=== PATIENT | male | born 1990 | race Two or more races ===

== ENCOUNTER 2019-08-29 22:42 | Emergency (ER) | payer MEDICAID ==
[~2019-08-29] VITALS: Ht 177.8 cm; Wt 79.4 kg
--- NOTE | 2019-08-29 23:37 | NUR ---
PT PRESENTED TO THE ER WITH A C/O A WEIGHT LIFTING BAR FELL ON HIS HEAD 90 MINS [employer]. PT SEEMS A LITTLE SLEEPY. PT AMBULATED TO ER BED #2. PT WAS PLACED ON THE MONITOR AND CONTINUOUS PULSE OX.
--- NOTE | 2019-08-29 23:50 | NUR ---
WOUND CARE IN PROGRESS.
[2019-08-30] MEDS ORDERED: ACETAMINOPHEN 325 MG TABLET PO ONE
--- NOTE | 2019-08-30 | NUR ---
PT REC'D 2 WALLY ON TOP OF HEAD. LAC APPROX 2 CM.
--- NOTE | 2019-08-30 00:02 | NUR ---
PT REC'D A TETANUS SHOT. PT DID NOT WANT TYLENOL.
[2019-08-30] MEDS ORDERED: TDAP [DIPH/PERTUSSIS/TET] 0.5 ML VIAL IM ONE ×2 (00:10)
--- NOTE | 2019-08-30 00:15 | NUR ---
Patient discharged to home in stable condition. Written and verbal after care instructions given. Patient verbalizes understanding of instruction. PT AMBULATED OUT WITH A STEADY GAIT. VSS.
[2019-08-30 00:29] VITALS: BP 116/79
== END 2019-08-30 00:15 | disposition home or self-care (01) ==
LOC: ER 22:42
DX: S01.01XA Laceration without foreign body of scalp, initial encounter (principal); S09.8XXA Other specified injuries of head, initial encounter; Z23 Encounter for immunization; W17.89XA Other fall from one level to another, initial encounter; Y93.89 Activity, other specified; Y92.89 Other specified places as the place of occurrence of the external cause; Y99.8 Other external cause status
CPT/HCPCS: 12001; 90471; 90715; 99283; A6403

== ENCOUNTER 2019-09-07 14:52 | Emergency (ER) | payer MEDICAID ==
[~2019-09-07] VITALS: Ht 177.8 cm; Wt 75.7 kg
[2019-09-07 14:55] VITALS: BP 120/70
== END 2019-09-07 15:13 | disposition home or self-care (01) ==
LOC: ER 14:54
DX: S01.01XD Laceration without foreign body of scalp, subsequent encounter (principal); X58.XXXD Exposure to other specified factors, subsequent encounter